=== PATIENT | male | born 1955 | race Caucasian/White ===

== ENCOUNTER 2019-06-27 08:27 | Emergency (ER) | payer SELFPAY ==
--- NOTE | 2019-06-27 10:14 | EDM.PDOC ---
ED HPI GENERAL MEDICAL PROBLEM - General Chief Complaint: ENT Problem Stated Complaint: TOOTH PAIN Time Seen by Provider: 06/27/19 09:55 Source of Information: Reports: Patient History Limitations: Reports: No Limitations - History of Present Illness INITIAL COMMENTS - FREE TEXT/NARRATIVE: 64-year-old male who has been having an ongoing problem with his right first molar. It has a crown but developed inflammation so he had a root canal over week ago and has had some persistent pain, was rechecked by a dentist 2 days ago and had the tooth filled. He expressed his concern about the ongoing pain so an x-ray was done and no abscess was seen. He is now developed increased pain however, with some slight bulging on the inside of the tooth, no fevers or chills or significant facial swelling. Onset: Gradual Duration: Day(s): (2 days) Associated Symptoms: Reports: No Other Symptoms Tooth/Teeth Pain Score (Numeric/FACES): 8 - Related Data Allergies Allergy/AdvReac Type Severity Reaction Status Date / Time Penicillins Allergy Cannot Verified 06/27/19 09:47 Remember Home Meds: Home Meds NK [No Known Home Meds] 06/27/19 [History] Past Medical History HEENT History: Reports: Impaired Vision Cardiovascular History: Reports: Arrhythmia, High Cholesterol, Hypertension Social & Family History - Tobacco Use Smoking Status *Q: Former Smoker Used Tobacco, but Quit: Yes Month/Year Tobacco Last Used: 0 - Caffeine Use Caffeine Use: Reports: Coffee Other Caffeine Use: 6 cups per day - Recreational Drug Use Recreational Drug Use: No ED ROS ENT - Review of Systems Review Of Systems: See Below Constitutional: Denies: Fever, Chills HEENT: Reports: Other (Worsening and significant right mandibular dental pain) Respiratory: Reports: No Symptoms Skin: Reports: No Symptoms ED EXAM, ENT - Physical Exam Exam: See Below Exam Limited By: No Limitations General Appearance: Alert, No Apparent Distress (Looks uncomfortable but not distressed) Mouth/Throat: Other (The first molar on each side on the mandible has a crown, the right first molar has a new filling centrally with some tenderness and swelling on the medial aspect of the tooth) Course - Vital Signs Last Recorded V/S: Last Vital Signs Temp 96.5 F 06/27/19 09:39 Pulse 56 L 06/27/19 09:39 Resp 18 06/27/19 09:39 BP 189/96 H 06/27/19 09:39 Pulse Ox 94 L 06/27/19 09:39 - Re-Assessments/Exams Free Text/Narrative Re-Assessment/Exam: 06/27/19 10:13 Patient was started on clindamycin 300 mg 3 times a day for the next 5 days and given 10 hydrocodone for extra pain control. He is going to contact his dentist early next week if not improving satisfactorily. Departure - Departure Time of Disposition: 10:30 Disposition: Home, Self-Care 01 Clinical Impression: Abscess, dental - Discharge Information Instructions: Dental Abscess, [id number] Referrals: PCP,None [Primary Care Provider] - Forms: ED Department Discharge Care Plan Goals: Take 2 doses of clindamycin 3 times a day until gone, continue with ibuprofen and add stronger pain medication if needed. Recheck with the dentist early next week if not improving satisfactorily, or return to the emergency room if worsening despite treatment such as facial swelling or fever. Sepsis Event Note - Evaluation Sepsis Screening Result: No Definite Risk - Focused Exam Vital Signs: Vital Signs Temp Pulse Resp BP Pulse Ox 06/27/19 09:39 96.5 F 56 L 18 189/96 H 94 L Date Exam was Performed: 06/27/19 Time Exam was Performed: 14:04
== END 2019-06-27 10:30 | disposition home or self-care (01) ==
LOC: JP.ED 08:27
CPT/HCPCS: 99282; 99283

== ENCOUNTER 2023-07-03 07:32 | Day surgery (SDC) | payer MEDICARE ==
[2023-07-03] MEDS ORDERED: fentaNYL 100 MCG/2 ML SDV ONE (08:08)
[2023-07-03] MEDS ORDERED: Propofol 200 MG/20 ML SDV ONE (08:08)
[2023-07-03] MEDS: Lactated Ringers 1,000 ML IV SCH (08:28)
== END 2023-07-03 11:20 | disposition home or self-care (01) ==
LOC: JP.SDS 07:32
PROVIDERS: ATTEND Student in an Organized Health Care Education/Training Program
DX: Z12.11 Encounter for screening for malignant neoplasm of colon (principal); D12.3 Benign neoplasm of transverse colon; K57.30 Diverticulosis of large intestine without perforation or abscess without bleeding; I10 Essential (primary) hypertension; K21.9 Gastro-esophageal reflux disease without esophagitis; G47.33 Obstructive sleep apnea (adult) (pediatric); Z88.0 Allergy status to penicillin
CPT/HCPCS: 45380; 88305; J2704; J3010; J7120